=== PATIENT | male | born 1945 | race Caucasian/White ===

== ENCOUNTER → 2017-08-06 | Outpatient (CLI) | payer BC | LOC: CIMAGING 08:01 | PROVIDERS: ATTEND Family Medicine | DX: K76.89 Other specified diseases of liver (principal) | CPT/HCPCS: 76705-PO ==

== ENCOUNTER 2017-08-08 16:13 | Emergency (ER) | payer BC ==
--- NOTE | 2017-08-08 16:26 | EDPHY ---
H & P HPI/ROS: HPI CHIEF COMPLAINT: Abdominal pain, elevated liver enzymes HISTORY OF PRESENT ILLNESS: This patient very pleasant 72-year-old male, significant past medical history for daily alcohol use, recently stopped, presents emergency room with abdominal pain and nausea. Also distally reports abdominal bloating. Additionally reports 6 lb weight gain. He was recently having a pre operative evaluation for knee replacement and was subsequently found to have elevated LFTs. These were initially in the 500s range. He drinks scotch nightly. 6 alcohol drinks per night. He has since stopped this due to the elevated LFTs. However he had repeat LFTs and they went up. He had an ultrasound is right upper quadrant reported to me that was normal. He decided come to the emergency room tonight due to abdominal pain. Right lower flank. Patient denies chest pain or shortness of breath. Denies fever. Patient denies any fever. Denies new medications. He does report to me 3 weeks ago he had a flu-like illness. He describes abdominal pain it is located right-sided low right flank earlier this morning is since resolved. Past Medical History: Daily alcohol use, obesity, irregular heartbeat Past Surgical History: No recent surgery Social History: Denies daily use of tobacco or drugs. Frequent alcohol use but stopped recently. Family History: Noncontributory ROS REVIEW OF SYSTEMS: A comprehensive 10 point review of systems is otherwise negative aside from elements mentioned in the history of present illness. Exam Constitutional appears well nontoxic, triage nursing summary reviewed, vital signs reviewed, awake/alert. Eyes normal conjunctivae and sclera, EOMI, PERRLA. HENT normal inspection, atraumatic, moist mucus membranes, no epistaxis, neck supple/ no meningismus, no raccoon eyes. Respiratory clear to auscultation bilaterally, normal breath sounds, no respiratory distress, no wheezing. Cardiovascular rate normal, regular rhythm, no murmur, no edema, distal pulses normal. Gastrointestinal soft, non-tender, no rebound, no guarding, normal bowel sounds, no distension, no pulsatile mass. Genitourinary no CVA tenderness. Musculoskeletal no midline vertebral tenderness, full range of motion, no calf swelling, no tenderness of extremities, no meningismus, good pulses, neurovascularly intact. Skin no icteric eyes or jaundice pink, warm, & dry, no rash, skin atraumatic. Neurologic awake, alert and oriented x 3, AAOx3, moves all 4 extremities equally, motor intact, sensory intact, CN II-XII intact, normal cerebellar, normal vision, normal speech. Psychiatric normal mood/affect. Heme/Lymph/Immune no lymphadenopathy. Differential Diagnosis: Includes but is not limited to in a particular order hepatitis, liver CA, fatty liver, alcohol-induced hepatitis, electrolyte disturbance, infection Medical Decision Making: Plan for this patient IV establishment IV fluid bolus , CT scan abdomen pelvis with IV contrast to better delineate his abdominal pain. Check basic blood work. Urinalysis and re-evaluate. Re-evaluation: EKG interpretation by me on record in [facility] system. Impression TIME OF EK, sinus rhythm rate of 62 incomplete right bundle-branch block otherwise no acute ischemia. CT scan abdomen pelvis with IV contrast and p.o. contrast called to me by Dr. Rizvi. This shows coronary artery disease and enlarged heart but no overt failure, additionally this does not show a fatty liver the liver size normal. Additionally there is a septated liver cyst. Additionally there are small liver cyst that need to be further characterized by MRI liver panel. 2053: I discussed the patient's results with him. He understands he needs to follow up with his primary care doctor to have her MRI liver protocol. I would highly recommend that he continues to refrain from drinking alcohol. Additionally he has to go over his supplements with his daughter about identifying of any wheezing cause elevated liver enzymes. Additionally he should diet and lose weight. He understands. Source: Patient Constitutional: Initial Vital Signs Temperature (C) 37.2 C 08/08/17 16:22 Heart Rate 65 08/08/17 16:22 Respiratory Rate 18 08/08/17 16:22 Blood Pressure 138/74 H 08/08/17 16:22 O2 Sat (%) 95 08/08/17 16:22 O2 Delivery Mode Room Air Allergies/Adverse Reactions: No Known Allergies Allergy (Verified 08/08/17 16:28) Home Medications: Medication Instructions Recorded Levothyroxine Sodium [Synthroid] 50 mcg PO DAILY 03/10/11 Medical Decision Making - Diagnostics Imaging Results: Imaging Impressions Abdomen CT 08/08/17 16:41 Impression: 1. One dominant thinly septated liver cyst and several other small, too small to characterize liver lesions. These may represent incidental hepatic cysts however considering elevated liver enzymes, recommend elective MRI of the liver without and with contrast. 2. Mild cardiomegaly with coronary artery disease, but without evidence for decompensation. 3. Constipation. No bowel obstruction. 4. Mild diverticulosis without diverticulitis. 5. Fused SI joints. Results called and discussed with Faheem Bhatia MD, at 08/08/2017 20:43 General information for patients regarding this examination can be found at [email or web address]. If you have questions or comments about this report, please contact me at (hospital) or [phone] (cell). - Data Points Laboratory Results: Laboratory Results 08/08/17 16:45 08/08/17 16:45 08/08/17 08/08/17 08/08/17 18:34 16:45 16:45 WBC RBC Hgb Hct MCV MCH MCHC RDW Plt Count MPV Neut % (Auto) Lymph % (Auto) Darke % (Auto) Eos % (Auto) Baso % (Auto) Nucleat RBC Rel Count Absolute Neuts (auto) Absolute Lymphs (auto) Absolute Monos (auto) Absolute Eos (auto) Absolute Basos (auto) Absolute Nucleated RBC Immature Gran % Immature Gran # PT 14.7 SEC SEC (12.0-15.0) INR 1.13 (0.83-1.16) APTT 26.5 SEC SEC (23.0-38.0) VBG Lactic Acid Sodium 141 mEq/L mEq/L (134-144) Potassium 4.4 mEq/L mEq/L (3.5-5.2) Chloride 106 mEq/L mEq/L (97-110) Carbon Dioxide 22 mEq/l mEq/l (22-31) Anion Gap 13 mEq/L mEq/L (8-16) BUN 20 mg/dL mg/dL (7-23) Creatinine 1.1 mg/dL mg/dL (0.7-1.3) Estimated GFR > 60 Glucose 90 mg/dL mg/dL (70-100) Calcium 9.4 mg/dL mg/dL (8.5-10.4) Total Bilirubin 1.2 mg/dL mg/dL (0.1-1.4) Conjugated Bilirubin 0.5 mg/dL mg/dL (0.0-0.5) Unconjugated Bilirubin 0.7 mg/dL mg/dL (0.0-1.1) AST 340 IU/L H IU/L (17-59) ALT 688 IU/L H IU/L (21-72) Alkaline Phosphatase 87 IU/L IU/L (38-126) Troponin I < 0.012 ng/mL ng/mL (0.000-0.034) Total Protein 6.9 g/dL g/dL (6.3-8.2) Albumin 4.0 g/dL g/dL (3.5-5.0) Lipase 172 IU/L IU/L (23-300) Urine Color YELLOW Urine Appearance CLEAR Urine pH 5.0 (5.0-7.5) Ur Specific Conde 1.017 (1.002-1.030) Urine Protein NEGATIVE (NEGATIVE) Urine Ketones NEGATIVE (NEGATIVE) Urine Blood NEGATIVE (NEGATIVE) Urine Nitrate NEGATIVE (NEGATIVE) Urine Bilirubin NEGATIVE (NEGATIVE) Urine Urobilinogen 2.0 EU H EU (0.2-1.0) Ur Leukocyte Esterase NEGATIVE (NEGATIVE) Urine Glucose NEGATIVE (NEGATIVE) 08/08/17 08/08/17 16:45 16:45 WBC 5.19 10^3/uL 10^3/uL (3.80-9.50) RBC 4.68 10^6/uL 10^6/uL (4.40-6.38) Hgb 15.1 g/dL g/dL (13.7-17.5) Hct 43.4 % % (40.0-51.0) MCV 92.7 fL fL (81.5-99.8) MCH 32.3 pg pg (27.9-34.1) MCHC 34.8 g/dL g/dL (32.4-36.7) RDW 13.4 % % (11.5-15.2) Plt Count 243 10^3/uL 10^3/uL (150-400) MPV 9.4 fL fL (8.7-11.7) Neut % (Auto) 54.3 % % (39.3-74.2) Lymph % (Auto) 30.3 % % (15.0-45.0) Darke % (Auto) 8.9 % % (4.5-13.0) Eos % (Auto) 4.4 % % (0.6-7.6) Baso % (Auto) 1.9 % H % (0.3-1.7) Nucleat RBC Rel Count 0.0 % % (0.0-0.2) Absolute Neuts (auto) 2.82 10^3/uL 10^3/uL (1.70-6.50) Absolute Lymphs (auto) 1.57 10^3/uL 10^3/uL (1.00-3.00) Absolute Monos (auto) 0.46 10^3/uL 10^3/uL (0.30-0.80) Absolute Eos (auto) 0.23 10^3/uL 10^3/uL (0.03-0.40) Absolute Basos (auto) 0.10 10^3/uL 10^3/uL (0.02-0.10) Absolute Nucleated RBC 0.00 10^3/uL 10^3/uL (0-0.01) Immature Gran % 0.2 % % (0.0-1.1) Immature Gran # 0.01 10^3/uL 10^3/uL (0.00-0.10) PT INR APTT VBG Lactic Acid 1.0 mmol/L mmol/L (0.7-2.1) Sodium Potassium Chloride Carbon Dioxide Anion Gap BUN Creatinine Estimated GFR Glucose Calcium Total Bilirubin Conjugated Bilirubin Unconjugated Bilirubin AST ALT Alkaline Phosphatase Troponin I Total Protein Albumin Lipase Urine Color Urine Appearance Urine pH Ur Specific Conde Urine Protein Urine Ketones Urine Blood Urine Nitrate Urine Bilirubin Urine Urobilinogen Ur Leukocyte Esterase Urine Glucose Medications Given: Discontinued Medications Sodium Chloride (Ns) 1,000 mls @ 0 mls/hr IV EDNOW ONE; Wide Open PRN Reason: Protocol Stop: 08/08/17 16:42 Last Admin: 08/08/17 16:54 Dose: 1,000 mls Departure - Departure Disposition: Home, Routine, Self-Care Clinical Impression: Elevated liver enzymes Condition: Good Instructions: Abdominal Pain (ED) Additional Instructions: 1. Drink lots of fluids stay well-hydrated. 2. Refrain from drinking alcohol. 3. Please follow up with her primary care doctor to obtain an MRI liver protocol. This is to help identify these very small liver cyst on your CT scan. 4. Return emergency room if you have worsening abdominal pain fever vomiting. Referrals: Teresa Sinclair [Primary Care Provider] - As per Instructions
[2017-08-08] MEDS ORDERED: NS 1,000 ML IV ONE (16:41)
[2017-08-08 16:56] LABS: % IMMATURE GRANULYOCYTES 0.2 % (0.0-1.1); ABSOLUTE IMMATURE GRANULOCYTES 0.01 10^3/uL (0.00-0.10); ADD DIFF? NO; ADD MORPH? NO; ADD SCAN? NO; ATYPICAL LYMPHOCYTE FLAG 0 (0-99); FRAGMENT RBC FLAG 0 (0-99); HEMATOCRIT 43.4 % (40.0-51.0); HEMOGLOBIN 15.1 g/dL (13.7-17.5); LEFT SHIFT FLG 0 (0-99); LIPEMIA HEMOLYSIS FLAG 90 (0-99); MEAN CELL HEMOGLOBIN 32.3 pg (27.9-34.1); MEAN CELL HEMOGLOBIN CONCENTR. 34.8 g/dL (32.4-36.7); MEAN CELL VOLUME 92.7 fL (81.5-99.8); MEAN PLATELET VOLUME 9.4 fL (8.7-11.7); PLATELET CLUMPS FLAG 0 (0-99); PLATELET COUNT 243 10^3/uL (150-400); RED BLOOD CELL COUNT 4.68 10^6/uL (4.40-6.38); RED CELL DISTRIBUTION WIDTH 13.4 % (11.5-15.2)
--- NOTE | 2017-08-08 16:59 | CPEKG ---
Heart Rate: 62 RR Interval: 968 P-R Interval: 196 QRSD Interval: 118 QT Interval: 424 QTC Interval: 431 P [place]: 15 QRS [place]: -14 T Wave [place]: 14 EKG Severity - ABNORMAL ECG - EKG Impression: SINUS RHYTHM EKG Impression: INCOMPLETE RBBB AND LAFB Electronically Signed By: Faheem Bhatia 08-Aug-2017 22:51:04
[2017-08-08 17:04] LABS: ALANINE AMINOTRANSFERASE 688 IU/L (21-72); ALKALINE PHOSPHATASE 87 IU/L (38-126); ANION GAP 13 mEq/L (8-16); ASPARTATE AMINOTRANSFERASE 340 IU/L (17-59); BILIRUBIN,TOTAL 1.2 mg/dL (0.1-1.4); BILIRUBIN-CONJUGATED 0.5 mg/dL (0.0-0.5); BILIRUBIN-UNCONJUGATED 0.7 mg/dL (0.0-1.1); CALCIUM 9.4 mg/dL (8.5-10.4); CARBON DIOXIDE 22 mEq/l (22-31); CHLORIDE 106 mEq/L (97-110); CREATININE 1.1 mg/dL (0.7-1.3); GLOMERULAR FILTRATION RATE > 60; GLUCOSE 90 mg/dL (70-100); POTASSIUM 4.4 mEq/L (3.5-5.2); SODIUM 141 mEq/L (134-144); TOTAL PROTEIN 6.9 g/dL (6.3-8.2)
[2017-08-08 17:05] LABS: INR 1.13 (0.83-1.16); PROTIME(PATIENT) 14.7 SEC (12.0-15.0)
[2017-08-08 17:15] LABS: APTT 26.5 SEC (23.0-38.0); TROPONIN I < 0.012 ng/mL (0.000-0.034)
[2017-08-08 18:58] LABS: COLOR YELLOW; LEUKOCYTE ESTERASE,URINE NEGATIVE (NEGATIVE); NITRITE,URINE NEGATIVE (NEGATIVE)
[2017-08-08] MEDS ORDERED: IOPAMIDOL (ISOVUE-300) 100 ML BTL ONE (19:58)
[2017-08-08 20:55] VITALS: BP 127/69; PULSE 54; RESP 18; TEMP 97.9; O2SAT 97
== END 2017-08-08 21:00 | disposition home or self-care (01) ==
DX: R74.8 Abnormal levels of other serum enzymes (principal); E86.9 Volume depletion, unspecified
CPT/HCPCS: Q9967

== ENCOUNTER → 2017-08-14 | Outpatient (CLI) | payer BC | LOC: CIMAGING 11:19 | PROVIDERS: ATTEND Neurological Surgery | DX: M47.812 Spondylosis without myelopathy or radiculopathy, cervical region (principal) | CPT/HCPCS: 72050-PO ==

== ENCOUNTER → 2017-08-18 | Outpatient (CLI) | payer BC ==
[~2017-08-18] MED LIST: GADOBUTROL 10 ML VIAL IVP ONE
== END ==
LOC: FIMAGING 06:54
PROVIDERS: ATTEND Family Medicine
DX: K76.0 Fatty (change of) liver, not elsewhere classified (principal); K76.89 Other specified diseases of liver; K59.00 Constipation, unspecified
CPT/HCPCS: A9585

== ENCOUNTER → 2018-06-07 | Outpatient (CLI) | payer BC | LOC: FIMAGING 15:45 | PROVIDERS: ATTEND Orthopaedic Surgery | DX: Z01.818 Encounter for other preprocedural examination (principal); M17.12 Unilateral primary osteoarthritis, left knee; M25.462 Effusion, left knee ==

== ENCOUNTER 2018-06-23 05:43 | Observation (INO) | payer BC ==
[2018-06-23] MEDS ORDERED: DEXAMETHASONE 4 MG/ML VIAL IVP ONE (05:59)
[2018-06-23] MEDS ORDERED: FAMOTIDINE 20 MG TAB PO ONE (05:59)
[2018-06-23] MEDS ORDERED: ceFAZolin 2 GM/DEXTROSE 100 ML IV ONE (05:59)
[2018-06-23] MEDS ORDERED: ACETAMINOPHEN 325 MG TAB PO ONE (05:59)
[2018-06-23] MEDS ORDERED: ROPIVACAINE 0.2% 80 MG, EPINEPHrine 0.2 MG in SYRINGE 0 ML IU ONE (06:00)
[2018-06-23] MEDS ORDERED: LR 1,000 ML IV ONE (06:00)
[2018-06-23] MEDS ORDERED: TRANEXAMIC ACID 3,000 MG in NS (SYRINGE) 50 ML IRR ONE (06:00)
[2018-06-23] MEDS ORDERED: LIDOCAINE 1% 2 ML INJ ID PRN (06:15)
--- NOTE | 2018-06-23 06:24 | PDHPUP ---
History & Physical Update H&P update statement: This history and physical update is based on an assessment of the patient which was completed after admission or registration (within 24 hours), but prior to the surgery/procedure. H&P update: H&P reviewed & patient examined, no change in patient's condition since H&P completed
[2018-06-23] MEDS ORDERED: TRANEXAMIC ACID 3,000 MG/50 ML BAG IRR ONE (06:49)
[2018-06-23] MEDS ORDERED: MIDAZOLAM 2 MG/2 ML VIAL ONE (06:58)
[2018-06-23] MEDS ORDERED: PROPOFOL/EMULSION 500 MG/50 ML BOTTLE IV ONE (07:03)
[2018-06-23] MEDS ORDERED: LIDOCAINE 2% 5 ML SDV ONE ×3 (07:05→08:03)
[2018-06-23] MEDS ORDERED: MIDAZOLAM 2 MG/2 ML VIAL IVP ONE (07:11)
--- NOTE | 2018-06-23 07:11 | POSTANESTH ---
Post Anesthetic Evaluation Cardiovascular Status: Normal, Stable Respiratory Status: Normal, Stable Level of Consciousness/Mental Status: Can Participate in Eval, Alert and Oriented Pain Control: Adequate, Prn Tx Ordered Nausea/Vomiting Control: Adequate, Prn Tx Ordered Complications Possibly Related to Anesthesia: None Noted
--- NOTE | 2018-06-23 07:11 | PDANEPAE ---
ANE History of Present Illness left TKA ANE Past Medical History - Cardiovascular History Hx Hypertension: Yes Hx Arrhythmias: Yes Hx Chest Pain: No Hx Coronary Artery / Peripheral Vascular Disease: No Hx CHF / Valvular Disease: Yes Hx Palpitations: Yes Cardiovascular History Comment: htn. aortic insuff/ regurg. bicupsid aortic valve. sporadic palpatations. RBBB. PSVT. JESSICA with [facility] 04/12/18. followed by angi heart - Pulmonary History Hx COPD: No Hx Asthma/Reactive Airway Disease: No Hx Recent Upper Respiratory Infection: No Hx Oxygen in Use at Home: No Hx Sleep Apnea: Yes Sleep Apnea Screening Result - Last Documented: Positive Pulmonary History Comment: lei positive using oral appliance currently - Neurologic History Hx Cerebrovascular Accident: No Hx Seizures: No Hx Dementia: No Neurologic History Comment: hx of back surgery. cervical stenosis - Endocrine History Hx Diabetes: No Endocrine History Comment: hyperthyroidism - Renal History Hx Renal Disorders: Yes Renal History Comment: bph - Liver History Hx Hepatic Disorders: Yes Hepatic History Comment: elevated liver enzymes last year, GI of the [facility] is monitoring - Neurological & Psychiatric Hx Hx Neurological and Psychiatric Disorders: No - Cancer History Hx Cancer: Yes Cancer History Comment: skin ca with multiple Moh's procedures - Congenital Disorder History Hx Congenital Disorders: No - GI History Hx Gastrointestinal Disorders: No - Other Health History Other Health History: wears glasses - Chronic Pain History Chronic Pain: Yes (left knee) - Surgical History Prior Surgeries: 04/12/18 JESSICA with [facility]. left TKA. prior left knee scope for micro fractures. back surgery. right shoulder surgery ANE Review of Systems Review of Systems: - Exercise capacity METS (RN): 4 METS ANE Patient History - Allergies Allergies/Adverse Reactions: No Known Allergies Allergy (Verified 06/01/18 10:47) - Home Medications Home medications: home medication list seen and reviewed Home Medications: Tamsulosin HCl [Flomax 0.4 MG (*)] 0.8 mg PO HS 05/21/18 [Last Taken 06/23/18 03 :30] Multivitamins 06/23/18 [Last Taken 06/23/18 03:30] - NPO status NPO Since - Liquids (Date): 06/23/18 NPO Since - Liquids (Time): 03:45 NPO Since - Solids (Date): 06/22/18 NPO Since - Solids (Time): 20:00 - Anes Hx Anes Hx: no prior problems - Smoking Hx Smoking Status: Former smoker - Family Anes Hx Family Hx Anesthesia Complications: none ANE Labs/Vital Signs - Vital Signs Blood Pressure: 129/76 Heart Rate: 68 Respiratory Rate: 18 O2 Sat (%): 95 Height: 193 cm Weight: 104.326 kg ANE Physical Exam - Airway Neck exam: FROM Mallampati Score: Class 2 Mouth exam: normal dental/mouth exam - Pulmonary Pulmonary: no respiratory distress - Cardiovascular Cardiovascular: regular rate and rhythym - ASA Status ASA Status: III ANE Anesthesia Plan Anesthesia Plan: spinal Regional Anesthesia: single shot NB
[2018-06-23] MEDS ORDERED: ROPIVACAINE HCL 150 MG/30 ML INJ ONE (07:13)
[2018-06-23] MEDS ORDERED: fentaNYL 100 MCG/2 ML INJ ONE ×3 (07:34→08:54)
[2018-06-23] MEDS ORDERED: ONDANSETRON 4 MG/2 ML VIAL ONE ×2 (07:43→09:13)
[2018-06-23] MEDS ORDERED: DEXAMETHASONE 4 MG/ML VIAL ONE (07:43)
[2018-06-23] MEDS ORDERED: VANCOMYCIN 1 GM VIAL ONE (07:48)
[2018-06-23] MEDS ORDERED: ACETAMINOPHEN 500 MG TAB PO PRN (07:55)
[2018-06-23] MEDS ORDERED: ALBUTEROL 3 ML DEYVIAL IH PRN (07:55)
[2018-06-23] MEDS ORDERED: ONDANSETRON 4 MG/2 ML VIAL IVP PRN ×2 (07:55→08:47)
[2018-06-23] MEDS ORDERED: PROMETHAZINE HCL 25 MG/ML INJ IVP PRN ×2 (07:55→08:47)
[2018-06-23] MEDS ORDERED: HYDROCODONE/APAP 5/325 TAB PO PRN (07:55)
[2018-06-23] MEDS ORDERED: METOCLOPRAMIDE 10 MG/2 ML VIAL IVP PRN ×2 (07:55→08:47)
[2018-06-23] MEDS ORDERED: NALOXONE HCL 0.4 MG/ML INJ IVP PRN (07:55)
[2018-06-23] MEDS ORDERED: LR 500 ML IV PRN (07:55)
[2018-06-23] MEDS ORDERED: BISACODYL 10 MG SUPP PR PRN (08:47)
[2018-06-23] MEDS ORDERED: DIPHENOXYLATE/ATROPINE LOMOTIL 1 TAB PO PRN (08:47)
[2018-06-23] MEDS ORDERED: CYCLOBENZAPRINE 10 MG TAB PO PRN (08:47)
[2018-06-23] MEDS ORDERED: TEMAZEPAM 15 MG CAP PO PRN (08:47)
[2018-06-23] MEDS ORDERED: LACTULOSE 20 GM/30 ML UDCUP PO PRN (08:47)
[2018-06-23] MEDS ORDERED: ONDANSETRON DISINTEGRATING 4 MG TAB PO PRN (08:47)
[2018-06-23] MEDS ORDERED: diphenhydrAMINE 25 MG CAP PO PRN (08:47)
[2018-06-23] MEDS ORDERED: POLYETHYLENE GLYCOL 3350 17 GM PKT PO PRN (08:47)
[2018-06-23] MEDS ORDERED: PROMETHAZINE HCL 25 MG SUPPR PR PRN (08:47)
[2018-06-23] MEDS ORDERED: MAGNESIUM HYDROXIDE 30 ML UDCUP PO PRN (08:47)
--- NOTE | 2018-06-23 08:47 | POSTOPPROG ---
Post Op Note Date of Operation: 06/23/18 Surgeon: Nicole Burris Claims Adjustor: shine burris PA-C Anesthesiologist: Dr. allen Anesthesia: GET(General Endotracheal), Other (Specify) (Adductor canal block) Pre-op Diagnosis: left knee OA Post-op Diagnosis: same Indication: left knee pain Procedure: L TKA robot assisted Findings: severe knee OA Inf/Abcess present in the surg proc area at time of surgery?: No EBL: 50-100
[2018-06-23] MEDS: fentaNYL 100 MCG/2 ML INJ IVP PRN ×2 (08:52→09:01)
[2018-06-23] MEDS ORDERED: LR 1,000 ML IV SCH (09:00)
[2018-06-23] MEDS ORDERED: HYDROmorphONE/DILAUDID 2 MG/ML INJ ONE (09:13)
[2018-06-23] MEDS ORDERED: oxyCODONE IR 5 MG TAB ONE ×2 (09:14→09:52)
[2018-06-23] MEDS: HYDROmorphONE/DILAUDID 2 MG/ML INJ IVP PRN ×3 (09:20→10:11)
[2018-06-23] MEDS: oxyCODONE IR 5 MG TAB PO PRN ×3 (09:26→14:25)
[2018-06-23] MEDS ORDERED: PROMETHAZINE HCL 25 MG/ML INJ ONE (10:17)
[2018-06-23] MEDS: SENNOSIDES/DOCUSATE SODIUM TAB PO SCH ×2 (11:45→20:39)
[2018-06-23] MEDS: ACETAMINOPHEN 325 MG TAB PO SCH ×3 (12:56→23:50)
[2018-06-23] MEDS: ceFAZolin 2 GM/DEXTROSE 100 ML IV SCH ×2 (15:51→23:50)
[2018-06-23] MEDS: FAMOTIDINE 20 MG TAB PO SCH (20:39)
[2018-06-23] MEDS: ASPIRIN 81 MG CHEWABLE TAB PO SCH (20:39)
[2018-06-23] MEDS ORDERED: TAMSULOSIN HCL 0.4 MG CAP PO SCH (21:00)
[2018-06-24] MEDS: ACETAMINOPHEN 325 MG TAB PO SCH ×2 (05:39→12:09)
--- NOTE | 2018-06-24 08:34 | SOAPPROG ---
SOAP Progress Note Assessment/Plan: Assessment: Patient is doing well POD 1 s/p L TKA Pain management: pain is well controlled on oral pain meds. VTE ppx: recommend aspirin 81 mg BID for 4 weeks, cont NIRMAL and SCDs Anemia: level is expected initially postop. Asymptomatic. Continue to monitor D/c planning: d/c to home today pending release from PT Plan: 06/24/18 08:33 Subjective: patient is doing well postop, denies SOB, chest pain and N/V. Objective: Vital Signs Temp Pulse Resp BP Pulse Ox 36.6 C 73 13 106/66 95 06/24/18 07:30 06/24/18 07:30 06/24/18 07:30 06/24/18 07:30 06/24/18 07:30 Laboratory Results 06/24/18 04:18 06/24/18 04:18 06/23/18 06/24/18 06/25/18 05:59 05:59 05:59 Intake Total 1540 Output Total 2080 200 Balance -540 -200 LLE; incision dressing is clean and dry, NVi, +pf/df ICD10 Worksheet Patient Problems: Problems Problem Status Onset Primary localized osteoarthritis of left knee Acute
[2018-06-24] MEDS: FAMOTIDINE 20 MG TAB PO SCH (08:35)
[2018-06-24] MEDS: ASPIRIN 81 MG CHEWABLE TAB PO SCH (08:35)
[2018-06-24] MEDS: SENNOSIDES/DOCUSATE SODIUM TAB PO SCH (08:35)
[2018-06-24] MEDS: oxyCODONE IR 5 MG TAB PO PRN ×2 (09:40→16:20)
--- NOTE | 2018-06-24 09:41 | ASMTLACE ---
LACE Length of stay for Answers: 2 days current admission Acuity / Level of Answers: No Care: Did the patient have an inpatient admission? Comorbidities - select Answers: Congestive heart failure all that apply Opioid dependence / Chronic pain Other Notes: HTN; Hypothyroid # of Emergency department Answers: 0 visits in the last 6 months Score: 9 Date Signed: 06/24/2018 09:40 AM Electronically Signed By:CHRISTOPH Bustamante
--- NOTE | 2018-06-24 11:29 | GOP ---
DATE OF OPERATION: 06/23/2018 SURGEON: Britney Nelson MD PLAYGROUND ATTENDANT: Bria Nelson, VEE. ANESTHESIA: Spinal. PREOPERATIVE DIAGNOSIS: Left knee osteoarthritis. POSTOPERATIVE DIAGNOSIS: Left knee osteoarthritis. PROCEDURE PERFORMED: Left total knee replacement and computer navigation, robotic assist. FINDINGS: ESTIMATED BLOOD LOSS: 30 cc. INDICATIONS: The patient is a 73-year-old male with severe and progressive pain and deformity of the left knee unresponsive to conservative care. The risks and benefits of surgical intervention were e xplained in detail. DESCRIPTION OF PROCEDURE: The patient was brought to the operative room and placed on the table in t he supine position. Spinal anesthesia was induced without difficulty. A pneumatic tourniquet was appl ied about the left proximal thigh, and the leg was prepped and draped in a sterile fashion. The leg h older was applied. After exsanguination by elevation the tourniquet was inflated to 250 mmHg. Incision was made anterior medial from the tibial tuberosity to a point 2 cm proximal to the superior pole of the patella. Medial parapatellar arthrotomy was carried out from the superior pole of the pa tella and posteriorly in line with the fibers of the Type II VMO. The medial collateral ligament was elevated and the infrapatellar fat pad was resected. The patella was everted and the articular surface was excised. A 40 mm patellar button was placed. Attention was turned first to the distal aspect of the femur. After exposure of the femur, 2 half pi ns were placed for fixation of the femoral array. In a similar fashion, 2 pins were placed anteromed ial on the tibia for fixation of the tibial array. External land marking and registration of the hip center were performed without difficulty. Internal femoral and tibial registration were carried out without difficulty and the femoral and tibial checkpoints were placed and verified for accuracy. Attention was turned to the femur. The foot print for the size 8 femoral component was cut with the saw using the [employer] robotic system and verified for accuracy against the CT based plan. In a similar f ashion, the saw was used to cut the footprint for the size 8 tibial component using the [employer] system an d verified for accuracy against the CT based plan. The tibial articular surface was excised without d ifficulty, followed by the intercondylar box cut. The knee was extended and the remnants of the medial and lateral meniscus were excised. The posterior capsule was injected with ropivacaine, epinephrine and Toradol. A size 8 tibial tray was positioned . Trial reduction was then carried out. There was excellent range of motion, alignment, and stability using the 8 x 9 mm polyethylene. All trials were then removed. The joint was thoroughly irrigated and carefully dried. The press-fit c omponents were implanted. The permanent 8 x 9 mm polyethylene was placed without difficulty. The tourniquet was deflated and all bleeders were coagulated. The wound was thoroughly irrigated and closed using interrupted sutures of 2-0 Vicryl for the joint capsule. The subcu was closed with 3-0 V icryl and the skin with 4-0 Monocryl. Dermabond and Steri-Strips were applied followed by a compress aidee dressing. The patient was then moved from the operating room to the recovery room in good conditi on, having tolerated the procedure well. PATHOLOGY: Severe tricompartmental osteoarthritis. /[id number]/MODL
[2018-06-24 13:03] VITALS: BP 129/72
== END 2018-06-24 16:42 | disposition home or self-care (01) ==
LOC: F3N 05:43
PROVIDERS: ADMIT Orthopaedic Surgery; ATTEND Orthopaedic Surgery
PROC: 0SRD0JZ Replacement of Left Knee Joint with Synthetic Substitute, Open Approach (ICD-10-PCS; principal; 2018-06-23 07:15)
DX: M17.12 Unilateral primary osteoarthritis, left knee (principal); I10 Essential (primary) hypertension; I45.10 Unspecified right bundle-branch block; Q23.1 Congenital insufficiency of aortic valve
CPT/HCPCS: 27447; 73560; 97116; 97161; G0378; J0171; J0690; J1100; J1170; J2250; J2405; J2550; J2704; J2795; J3010; J3370

== ENCOUNTER → 2018-07-26 | Outpatient (CLI) | payer BC | LOC: FIMAGING 09:41 | PROVIDERS: ATTEND Family Medicine | DX: J20.9 Acute bronchitis, unspecified (principal) ==